=== PATIENT | female | born 1975 | race Caucasian/White ===

== ENCOUNTER 2024-08-23 20:19 | Emergency (ER) | payer SELFPAY ==
--- NOTE | 2024-08-23 20:22 | ED_ITS ---
HPI - Extremity Injury (Lower) General: Chief Complaint: Extremity Injury, Lower Stated Complaint: Knee Pain Time Seen by Provider: 08/23/24 20:21 History of Present Illness: 49-year-old female complaining of left k nee pain after the knee popped when she bent over to get something out of a cooler. She states that after it popped, she cannot put weight on it. Movement is painful. She has arthritis history in her other knee, but not this knee. She took ibuprofen at home without relief. Related Data Previous Rx's ?Medication ?Instructions ?Recorded hydrocodone 5 mg-acetaminophen 325 1 tab PO Q8H PRN pa in #7 tabs 08/23/24 mg tablet Allergies Allergy/AdvReac Type Severity Reaction Status Date / Time adhesive tape Allergy ALGY-Bliste Verified 08/23/24 21:05 r Sulfa (Sulfonamide Allergy Unknown Verified 08/23/24 21:04 Antibiotics) valacyclovir Allergy Unknown Verified 08/23/24 21:05 Physical Exam Const: COMMON NORMALS: no acute distress GENERAL APPEARANCE: cooperative; not ill appearing and not frail appearing HENMT: COMMON NORMALS: normocephalic, atraumatic and Normal external nose present HEAD & SCALP: normocephalic and atraumatic FACE & SINUS: normal facial exam and face symmetric NOSE: Normal external nose present Eye: COMMON NORMALS: Equal, round and reactive pupils present and EOMs intact bilaterally PUPIL: Yes Equal, round and reactive pupils present Neck/C-Spine: GENERAL: Yes trachea midline Chest: CHEST: Yes Symmetrical chest wall rise Resp: COMMON NORMALS: normal respiratory effort, No retractions, No use of accessory muscles and clear to auscultation bilaterally AUSCULTATION: clear to auscultation bilaterally Cardio: COMMON NORMALS: regular rate and regular rhythm RATE: regular rate RHYTHM: regular rhythm GI: COMMON NORMALS: Normal to inspection, nondistended, normoactive bowel sounds present Extremity: COMMON NORMALS: no pedal edema NARRATIVE EXTREMITY EXAM: Examination the left lower extremity reveals a small knee joint effusion. There is tenderness to palpation in the medial lateral joint line and along the patellar facets. There is no deformity. Pulses are normal distally. Sensation is intact. Any laxity testing is guarded. Neuro: RANJEET COMA SCALE: document GCS findings [place] coma scale eye opening: Spontaneous [place] coma scale verbal response: Orientated Ranjeet coma scale motor response: Obey commands [place] coma scale total score: 15 SENSORY EXAM: Yes extremities (intact) Psych: COMMON NORMALS: speech normal SPEECH: Yes normal speech Skin: COMMON NORMALS: no rashes or lesions noted GENERAL SKIN EXAM: no rashes or lesions noted Course Vital Signs: Vital signs: Vital Signs Temperature 98.4 F 08/23/24 20:25 Pulse Rate 90 08/23/24 21:55 Respiratory Rate 15 08/23/24 21:55 Blood Pressure 148/77 08/23/24 21:55 Pulse Oximetry 97 08/23/24 21:55 MDM - Extremity Injury (Lower) Medical Decision Making X-ray reveals no fracture. No significant effusion. She is placed in a knee immobilizer, given crutches. Orthopedic follow-up. Lab Data Radiology Impressions Knee X-Ray 08/23/24 20:24 IMPRESSION: No acute displaced fracture or dislocation. All radiology interpretation(s) finalized by discharge Discharge Plan Discharge Patient Disposition: Home Clinical Impression: Injury of knee, left, Lateral subluxation of left patella Condition: Stable Prescriptions: New hydrocodone-acetaminophen 5-325 mg tablet 1 tab PO Q8H PRN (Reason: pain) Qty: 7 0RF Discharge Orders: Discharge ED (Routine); Ordered 08/23/24 Ordered By: Vicente Callejas Referrals: Mike Bernal MD [Physician, Orthopedics] - 4-7 days Patient Instructions: Knee Pain (ED), Knee Immobilizer (ED), Opioid Safety, Pain Management, Patient Portal & Gosia Instructions Activity Restrictions/Additional Instructions: Wear your knee immobilizer for any weightbearing activities. Use crutches until you can begin to bear weight. Try not to use the knee immobilizer longer than 5 to 7 days. Call the orthopedic department on Sunday for a follow-up appointment. Their number is listed above. Use ice for pain and swelling. Use your meloxicam. You may use pain medication for more severe pain. Print Language: Armenian Coding Level of Care Code ED Leadership Intern for Faisal Sands
--- NOTE | 2024-08-23 20:24 | XRR_ITS ---
PROCEDURE INFORMATION: Exam: XR Left Knee Exam date and time: 08/23/2024 8:30 PM Age: 49 years old Clinical indication: C/O left knee pain. No injury. ; Additional info: L knee inj TECHNIQUE: Imaging protocol: Radiologic exam of the left knee. Views: 3 views. COMPARISON: No relevant prior studies available. FINDINGS: Bones/joints: No acute displaced fracture or dislocation. Trace suprapatellar joint effusion. Soft tissues: Normal. XR/XR knee LT 3V* [id number] IMPRESSION: No acute displaced fracture or dislocation.
[2024-08-23 20:25] VITALS: BP 170/86; PULSE 94; RESP 18; TEMP 36.9; O2SAT 98; BMI 37.5
[2024-08-23 21:11] VITALS: RESP 17
[2024-08-23] MEDS: morphine 4 mg/mL SDV 1 mL IVP (21:11)
[2024-08-23] MEDS: ondansetron 2 mg/ML SDV 2 mL 4 MG IVP (21:11)
--- NOTE | 2024-08-23 21:30 | PC.NURSE ---
Knee immobilizer placed on LLE. Crutches adjusted and crutch training performed. patient able to use properly.
[2024-08-23 21:55] VITALS: BP 148/77; PULSE 90; RESP 15; O2SAT 97
--- NOTE | 2024-08-25 09:17 | DCPLANNER ---
messaged ortho for er f/u
== END 2024-08-23 21:52 | disposition home or self-care (01) ==
PROVIDERS: Emergency Provider Emergency Medicine
DX: S83.012A Lateral subluxation of left patella, initial encounter (principal); X58.XXXA Exposure to other specified factors, initial encounter
CPT/HCPCS: 29530; 73562; 96374; 96375; 99284; J1885; J2270; J2405

== ENCOUNTER 2024-09-16 07:25 | Outpatient (CLI) | payer SELFPAY ==
--- NOTE | 2024-09-16 08:00 | MR_ITS ---
WS: [id number] MRI LEFT KNEE HISTORY: Left knee pain COMPARISON: 08/23/2024 Anterior cruciate ligament: Abnormal ACL. The anterior fibers are predominantly intact. Very thin anterior fibers distally. Interruption of the posterior fibers distally. Partial ACL tear suspected. There is additional edema along the tibial plateau at the site of the ACL attachment. Well-circumscribed 3 mm variable signal nodule adjacent to the lateral tibial spine could potentially be a small acute avulsion fracture. Focus is of increased signal on the T2 sequences and decreased on the proton density sequences. This is located within the central joint space and does partially about the meniscus. Posterior cruciate ligament: Intact. Medial collateral ligament: Intact. Posterior lateral corner structures: Intact. Medial menisci: Radial tear near the free edge of the posterior horn extends from the superior to inferior articular surfaces. There is additional intrasubstance degeneration in the posterior horn. The increased signal does not extend to the articular surfaces. Lateral meniscus: Intact. Normal signal, size and shape. Extensor mechanism: Distal quadriceps tendon and patellar tendons are intact. Fluid and soft tissue: Small suprapatellar joint effusion. Tiny Baldwin's cyst. Osseous and articular structures: Patellofemoral compartment: Normal positioning. Very minimal chondromalacia. No fracture or marrow edema. Patellar retinaculum are intact. Medial compartment: Mild narrowing the medial compartment. Mild diffuse chondromalacia. No fracture or marrow edema. There is marrow edema at the base of the tibial spines. Lateral compartment: Mild narrowing with mild thinning of the cartilage. Small cartilaginous defect along the mid weightbearing surface of the femoral condyle. Does not extend completely through the cartilage. MR/MR knee LT wo con* [id number] IMPRESSION: 1. Radial tear medial meniscus towards the free edge of the posterior horn. 2. There is additional intermediate signal in the posterior horn but no additi onal tears are identified. 3. Partial tear posterior fibers PCL. 4. Marrow edema associated with the tibial spines at the ACL attachment. 5. Heterogeneous well-circumscribed 3 mm focus in the lateral compartment. Alysha sely associated with the central meniscus and the tibial spines. There is also an adjacent defect along the weightbearing surface of the lateral femoral condy le. This well-circumscribed focus may be a meniscal fragment or osseous fragmen t. 6. Mild narrowing of the medial and lateral compartments.
== END 2024-09-16 07:26 | disposition home or self-care (01) ==
LOC: RAD 07:26
PROVIDERS: Visit Provider Orthopaedic Surgery
DX: S83.242A Other tear of medial meniscus, current injury, left knee, initial encounter (principal); X58.XXXA Exposure to other specified factors, initial encounter
CPT/HCPCS: 73721

== ENCOUNTER → 2024-09-29 14:56 | Outpatient (BNVA) | payer MEDICAID, SELFPAY | PROVIDERS: Visit Provider Orthopaedic Surgery | DX: S83.242A Other tear of medial meniscus, current injury, left knee, initial encounter (principal); W01.0XXA Fall on same level from slipping, tripping and stumbling without subsequent striking against object, initial encounter; Z01.818 Encounter for other preprocedural examination | CPT/HCPCS: 36415; 81001; 85025; 99213 ==

== ENCOUNTER → 2024-10-10 11:16 | Outpatient (BNVA) | payer MEDICAID, SELFPAY | PROVIDERS: Visit Provider Family Medicine | DX: Z01.818 Encounter for other preprocedural examination (principal) | CPT/HCPCS: 80053; 81003 ==

== ENCOUNTER 2024-10-22 09:32 | Day surgery (SDC) | payer MEDICAID, SELFPAY ==
[2024-10-22] VITALS (10 sets, daily range): BP systolic 136–159; BP diastolic 09–102; PULSE 76–91; RESP 10–19; TEMP 36.1–36.4; O2SAT 90–98; BMI 51.1
--- NOTE | 2024-10-22 10:58 | P.ANESASSM_ITS ---
Pre-Anesthetic Assessment Height/Weight: Height 1.63 m Weight 135.171 kg O2 Del Method Room Air 10/22/24 10:12 Operation Date: 10/22/24 11:10 Proposed Procedures p LEFT Knee Arthroscopic Medial Meniscectomy(Left) - Mike Bernal MD Familial anesthetic complications: None Was Beta Ines taken within 24 hours: N/A Was Clonidine taken within 24 hours: N/A Last intake: Intake Last Liquid Date 10/21/24 Last Liquid Time 20:00 Last Solid Date 10/21/24 Last Solid Time 19:30 Social No alcohol and No tobacco Exam alert, oriented x 3, clear to auscultation bilaterally and regular rate & rhythm Airway Mallampati: Class III Dentition: other (none) Pulmonary Asthma CV/HEM Hypertension GI Gastroesophageal Reflux Disease Metabolic Morbid Obesity and Thyroid Disease Anesthetic Plan ASA status: 3 Anesthesia: General Risk of > 500 ml blood loss (7ml/kg in children): No Medications/Allergies Home Medications ?Medication ?Instructions ?Recorded ?Confirmed ?Last Taken ?Type albuterol sulfate 90 mcg/actuation 2 puff inhalation D AILY 09/01/24 10/22/24 10/21/24 History aerosol inhaler fexofenadine 180 mg tablet 180 mg PO BEDTIME 09/01/24 10/22/24 10/21/24 History (Sonia Allergy) fluticasone propionate 50 1 spray intranasal BEDTIME 0 09/01/24 10/22/24 10/21/24 History mcg/actuation nasal spray,suspension acyclovir 200 mg capsule 200 mg PO BID 10/10/2410/2210/21/24 History amlodipine 10 mg tablet 10 mg PO BEDTIME 10/10/2410/21/24 History aripiprazole 2 mg tablet 2 mg PO QDAY 10/10/2410/21/24 History benzonatate 200 mg capsule 200 mg PO TID PRN Cough 10/22/24 10/21/24 History cevimeline 30 mg capsule 30 mg PO BEDTIME 10/10/2410/21/24 History cyclobenzaprine 10 mg tablet 10 mg PO BEDTIME 10/10/24 10/22/24 10/21/24 History duloxetine 60 mg capsule,delayed 60 mg PO BID 10/10/24 10/22/24 10/21/24 History release famotidine 10 mg tablet (Acid 20 mg PO BEDTIME 10/22/24 10/21/24 History Driver License Technician (famotidine)) gabapentin 600 mg tablet 600 mg PO .qhs 10/10/24 0905/1310/21/24 History hydroxychloroquine 200 mg tablet 200 mg PO BID 5 10/22/24 10/21/24 History (Plaquenil) levocetirizine 5 mg tablet 5 mg PO QDAY 10/10/2410/2210/21/24 History levothyroxine 25 mcg tablet 25 mcg PO QDAY 10/10/2410/21/24 History losartan 100 mg tablet 100 mg PO QDAY 10/10/2405/1310/21/24 History meloxicam 15 mg tablet 15 mg PO QDAY 10/10/2410/2210/15/24 History montelukast 10 mg tablet 10 mg PO QDAY 10/10/2410/2210/21/24 History mycophenolate mofetil 500 mg tablet 500 mg PO BID 09/2010/22/24 10/21/24 History pantoprazole 40 mg tablet,delayed 40 mg PO BEDTIME 10/22/24 10/21/24 History release pitolisant 17.8 mg tablet (Wakix) 17.8 mg PO QDAY 09/2010/22/24 09/21/24 History prednisone 10 mg tablet 10 mg PO BEDTIME 10/10/2410/21/24 History topiramate 100 mg tablet 300 mg PO BEDTIME 10/10/24 0 10/22/24 10/21/24 History Allergies Allergy/AdvReac Type Severity Reaction Status Date / Time sertraline (From Zoloft) Allergy Severe Unknown Verified 10/22/24 10:01 adhesive tape Allergy ALGY-Bliste Verified 10/22/24 10:01 r dimenhydrinate (From Allergy ADR/ALGY-Pa Verified 10/22/24 10:01 Dramamine) lpitations Sulfa (Sulfonamide Allergy Unknown Verified 10/22/24 10:01 Antibiotics) valacyclovir Allergy Unknown Verified 10/22/24 10:01 [facility] Anesthesia Social History Smoking and tobacco/nicotine status: never used tobacco/nicotine
--- NOTE | 2024-10-22 10:58 | ANES.PREANE2 ---
Pre-Anesthetic Assessment Height/Weight: Height 1.63 m Weight 135.171 kg O2 Del Method Room Air 10/22/24 10:12 Operation Date: 10/22/24 11:10 Proposed Procedures p LEFT Knee Arthroscopic Medial Meniscectomy(Left) - Mike Bernal MD Familial anesthetic complications: None Was Beta Ines taken within 24 hours: N/A Was Clonidine taken within 24 hours: N/A Last intake: Intake Last Liquid Date 10/21/24 Last Liquid Time 20:00 Last Solid Date 10/21/24 Last Solid Time 19:30 Social No alcohol and No tobacco Exam alert, oriented x 3, clear to auscultation bilaterally and regular rate & rhythm Airway Mallampati: Class III Dentition: other (none) Pulmonary Asthma CV/HEM Hypertension GI Gastroesophageal Reflux Disease Metabolic Morbid Obesity and Thyroid Disease Anesthetic Plan ASA status: 3 Anesthesia: General Risk of > 500 ml blood loss (7ml/kg in children): No Medications/Allergies Home Medications ?Medication ?Instructions ?Recorded ?Confirmed ?Last Taken ?Type albuterol sulfate 90 mcg/actuation 2 puff inhalation DAILY 09/01/24 10/22/24 10/21/24 History aerosol inhaler fexofenadine 180 mg tablet 180 mg PO BEDTIME 09/01/24 10/22/24 10/21/24 History (Sonia Allergy) fluticasone propionate 50 1 spray intranasal BEDTIME 09/01/24 10/22/24 10/21/24 History mcg/actuation nasal spray,suspension acyclovir 200 mg capsule 200 mg PO BID 10/10/24 10/22/24 10/21/24 History amlodipine 10 mg tablet 10 mg PO BEDTIME 10/10/24 10/22/24 10/21/24 History aripiprazole 2 mg tablet 2 mg PO QDAY 10/10/24 10/22/24 10/21/24 History benzonatate 200 mg capsule 200 mg PO TID PRN Cough 10/10/24 10/22/24 10/21/24 History cevimeline 30 mg capsule 30 mg PO BEDTIME 10/10/24 10/22/24 10/21/24 History cyclobenzaprine 10 mg tablet 10 mg PO BEDTIME 10/10/24 10/22/24 10/21/24 History duloxetine 60 mg capsule,delayed 60 mg PO BID 10/10/24 10/22/2410/21/25 History release famotidine 10 mg tablet (Acid 20 mg PO BEDTIME 10/10/24 10/22/24 10/21/24 History Demonstrator Sales (famotidine)) gabapentin 600 mg tablet 600 mg PO .qhs 10/10/24 10/22/24 10/21/24 History hydroxychloroquine 200 mg tablet 200 mg PO BID 10/10/24 10/22/24 10/21/24 History (Plaquenil) levocetirizine 5 mg tablet 5 mg PO QDAY 10/10/24 10/22/24 10/21/24 History levothyroxine 25 mcg tablet 25 mcg PO QDAY 10/10/24 10/22/24 10/21/24 History losartan 100 mg tablet 100 mg PO QDAY 10/10/24 10/22/24 10/21/24 History meloxicam 15 mg tablet 15 mg PO QDAY 10/10/24 10/22/24 10/15/24 History montelukast 10 mg tablet 10 mg PO QDAY 10/10/24 10/22/24 10/21/24 History mycophenolate mofetil 500 mg tablet 500 mg PO BID 10/10/24 10/22/24 10/21/24 History pantoprazole 40 mg tablet,delayed 40 mg PO BEDTIME 10/10/24 10/22/24 10/21/24 History release pitolisant 17.8 mg tablet (Wakix) 17.8 mg PO QDAY 10/10/24 10/22/24 09/21/24 History prednisone 10 mg tablet 10 mg PO BEDTIME 10/10/24 10/22/24 10/21/24 History topiramate 100 mg tablet 300 mg PO BEDTIME 10/10/24 10/22/24 10/21/24 History Allergies Allergy/AdvReac Type Severity Reaction Status Date / Time sertraline (From Zoloft) Allergy Severe Unknown Verified 10/22/24 10:01 adhesive tape Allergy ALGY-Bliste Verified 10/22/24 10:01 r dimenhydrinate (From Allergy ADR/ALGY-Pa Verified 10/22/24 10:01 Dramamine) lpitations Sulfa (Sulfonamide Allergy Unknown Verified 10/22/24 10:01 Antibiotics) valacyclovir Allergy Unknown Verified 10/22/24 10:01 [facility] Anesthesia Social History Smoking and tobacco/nicotine status: never used tobacco/nicotine
--- NOTE | 2024-10-22 11:25 | W.PM.OPSUD ---
Surgery/Procedure H&P Update DATE OF PROCEDURE: October 22, 2024 DATE H&P PERFORMED: 10/10/24 H&P UPDATE INFORMATION: I have reviewed H&P completed within last 30 days, I have examined patient prior to procedure and No changes to prior documentation PREOP DIAGNOSIS: Internal derangement left knee PLANNED PROCEDURE: Operation Date: 10/22/24 11:10 Proposed Procedures p LEFT Knee Arthroscopic Medial Meniscectomy(Left) - Mike Bernal MD
[2024-10-22] MEDS: ceFAZolin 3,000 MG in sodium chloride 0.9% (plus) 100 ML 200 MG IV (12:23)
[2024-10-22] MEDS: BUPivacaine 0.5% INJ 30 mL 20 ML INJECTION (12:56)
--- NOTE | 2024-10-22 13:00 | P.OP_ITS ---
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 Procedure: Diagnostic left knee arthroscopy with chondroplasty of medial and lateral femoral condyles and partial meniscectomies of both medial and lateral menisci. Surgeon: Mike Bernal MD Anesthesia: General Indications: Arielle is a 49-year-old white female was seen in the orthopedic clinic for debilitating left knee pain. Subsequent MRI was ordered after there was concerns of a possible meniscal tear which showed evidence of a medial meniscal tear as well as a possible anterior horn lateral meniscal tear. Therefore at this time having failed all conservative measures patient was offered a diagnostic knee arthroscopy with all indicated procedures. All risk benefits treatment alternatives been discussed with her and she is agreeable to this at this time. Procedure: After obtaining written consent patient was taken the operating room placed the op table supine position general anesthetic administered. Once Konesky was achieved right leg was padded out appropriately. Left leg was placed in a leg ferrell and for the bed was dropped. Left leg was prepped and draped usual fashion. After surgical timeout standard anterior medial and lateral portals were made with #11 blade and camera cans placed to the lateral portal into the knee. Tour the knee was undertaken demonstrating good articular surface of the posterior patella. There is a few cracks in the cartilage however no breakdown. IT groove was in similar shape. Medial gutter demonstrat ed inflammation within the area but no other abnormalities. Medial compartment demonstrated grade II/III chondromalacia of the central weightbearing surface of the medial femoral condyle. This debrided down to stable cartilage space with mechanical shaver. Probing of the meniscus found that there was a cleavage tear between the posterior and middle 1 thirds of the medial meniscus. This is then debrided with hand instruments and mechanical shaver down to stable cartilaginous space. Intercondylar notch demonstrated intact anterior cruciate ligament and demonstrated good stability on Phillip's. Lateral compartment demonstrated grade 2 nearly grade III chondromalacia of the lateral femoral condyle weightbearing surface. This is debrided with mechanical shaver down to stable cartilage space. Probing of the meniscus found that there is no tears in the posterior and medial thirds of the meniscus however anteriorly the anterior horn was frayed and demonstrating damage to it and this too was debrided with mechanical shaver down to stable cartilaginous space. Knee was then washed with copious amounts sterile irrigation. All cannulas removed. Wounds were closed with 3-0 Prolene interrupted sutures. Wounds were injected with 30 cc of half percent plain Marcaine for postoperative pain management. Was then cleaned and dried dressed with Xeroform gauze, sterile gauze dressing sterile Curlex and an Davis wrap for compression. Patient was awakened transferred to cover room in stable condition
[2024-10-22] MEDS: fentaNYL 50 mcg/mL INJ 2mL IVP (13:17)
[2024-10-22] MEDS: HYDROcodone-acetaminophen 5-325 mg Tablet 1 TAB PO (14:08)
--- NOTE | 2024-10-22 14:40 | ANE.PACU2 ---
Inpatient post-anesthesia follow up: Airway intact: Yes Vital signs: Temperature 97.6 F Pulse Rate 79 Respiratory Rate 17 Blood Pressure 150/102 Pulse Oximetry 94 Oxygen Delivery Me thod Room Air Oxygen Flow Rate Fraction of Inspir ed Oxygen Hydration adequate: Yes Nausea and vomiting: No Pain level: 1 Mental status: Baseline
== END 2024-10-22 14:40 | disposition home or self-care (01) ==
PROVIDERS: PCP Family Medicine; Visit Provider Orthopaedic Surgery
PROC: (CPT 29880; principal; 2024-10-22 11:00)
DX: M23.92 Unspecified internal derangement of left knee (principal); S83.242A Other tear of medial meniscus, current injury, left knee, initial encounter; S83.282A Other tear of lateral meniscus, current injury, left knee, initial encounter; X58.XXXA Exposure to other specified factors, initial encounter; M94.262 Chondromalacia, left knee; J45.909 Unspecified asthma, uncomplicated; K21.9 Gastro-esophageal reflux disease without esophagitis; E66.01 Morbid (severe) obesity due to excess calories; Z68.43 Body mass index [BMI] 50.0-59.9, adult; E07.9 Disorder of thyroid, unspecified; I10 Essential (primary) hypertension
CPT/HCPCS: 29880; J0690; J1100; J2250; J2405; J2704; J3010; J3490; J7030; J9999

== ENCOUNTER → 2024-11-06 12:34 | Outpatient (BNVA) | payer MEDICAID, SELFPAY | PROVIDERS: PCP Family Medicine; Visit Provider Orthopaedic Surgery | DX: Z98.890 Other specified postprocedural states (principal) | CPT/HCPCS: 99024 ==